=== PATIENT | male | born 1995 | race African-American/Black ===

== ENCOUNTER → 2016-12-26 09:12 | Day surgery (SDC) | payer OTHER ==
--- NOTE | 2016-12-22 14:55 | HP ---
PREOPERATIVE HISTORY AND PHYSICAL EXAM: DATE OF OFFICE VISIT/ENCOUNTER: 12/22/16 DATE OF SURGERY/ADMISSION: 12/26/16 [facility] ATTENDING SURGEON: Kathy Batista MD. PROCEDURE: Right index finger proximal interphalangeal joint release. CHIEF COMPLAINT: Right index finger pain and stiffness, status post dislocation. HISTORY OF PRESENT ILLNESS: This is a 21-year-old inmate who complains of right index finger pain and stiffness. He had a dislocation of the PIP joint 1 year ago, which was reduced but not splinted afterwards. He had two courses of physical therapy, one for 3 months and one for 8 sessions, during which he attempted to regain motion at the PIP joint, but he was not successful. He is not particularly complaining of pain, but does not have active flexion of the finger PIP joint. He is interested in pursuing surgical intervention at this time to correct the problem. PAST MEDICAL HISTORY: Unremarkable. PAST SURGICAL HISTORY: None. CURRENT MEDICATIONS: None. ALLERGIES: None. FAMILY MEDICAL HISTORY: Unknown. SOCIAL HISTORY: The patient is incarcerated. He is a former smoker. He quit smoking in 2014. He denies recreational drug use and alcohol use. REVIEW OF SYSTEMS: General: Negative for fevers, chills, or night sweats. No known anesthesia problems. HEENT: Negative for headache, lightheadedness, or syncopal episodes. Integumentary: Negative for abrasions, lesions, or open wounds. Cardiothoracic: Negative for chest pain, palpitations, or edema. Negative for hypertension. Pulmonary: Negative for shortness of breath with exertion, chronic cough, or COPD. GI: Negative for nausea, vomiting, diarrhea , constipation or GERD. : Negative for nocturia, urinary frequency, urgency , history of UTIs, or kidney problems. Musculoskeletal: Positive for current complaint. Negative for chronic or intermittent back pain or history of fractures. Neurological: Negative for paresthesias, numbness, history of seizure, stroke, or epilepsy. Endocrine: Negative for diabetes or thyroid issues. Hematologic: Negative for easy bruising, anemia, excessive bleeding, or history of DVT. Infectious Disease: Negative for history of MRSA, hepatitis C, or HIV. PHYSICAL EXAMINATION GENERAL: Well-developed, well-nourished 21-year-old male in no acute distress. VITALS SIGNS: Height 5 feet 11 inches, weight 215 pounds, pulse rate 72, blood pressure 118/70. HEENT: Normocephalic, atraumatic. Pupils are equal, round, and reactive to light and accommodation. Extraocular movements are intact. NECK: Supple. No palpable lymph nodes. Throat is clear. CARDIOTHORACIC: Regular rate and rhythm. S1 and S2. No murmurs, rubs, or gallops. No edema. PULMONARY: Lungs are clear to auscultation bilaterally. No wheezes, rales, or rhonchi. ABDOMEN: Positive bowel sounds, soft, nontender. MUSCULOSKELETAL: On exam of the right hand, index finger, he has full extension of the PIP joint. He has slight flexion deformity at the DIP joint. He can actively fully flex the DIP joint. He has approximately 20 to 30 degrees of active PIP flexion and passive flexion of the PIP joint is not more than active. He has full extension of both joints. He has full MP motion in flexion and extension and a hard endpoint to flexion with attempted passive motion. Neurovascular function is intact. Skin is intact. NEUROLOGICAL: Alert and oriented x3. Cranial nerves II through XII are intact. Sensation is intact to light touch. DIAGNOSTIC STUDIES: Imaging Studies: X-rays AP, lateral and oblique of the right index finger show concentric reduction of PIP joint with evidence of volar plate fracture that has healed. 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 PLAN: The patient is scheduled to undergo a right index finger proximal interphalangeal joint release with Dr. Batista on 12/26/16. He will return to the office 10 to 14 days postop for followup and suture removal. It is recommended that he use [place] for postoperative pain management and this will be prescribed by his facility physician. RAJ JAMES [id number]/[facility] #: [id number] KRYSTIN
[~2016-12-26 09:12] MED LIST: Acetaminophen TAB* 325 MG PO PRN; Buffered Lidocaine 1% SYR 3ML* 3 ML/SYR SYRINGE INTRADERM ONE; Dexamethasone IV* 4 MG/ML 1 ML (4 MG) ONE; DiMENhydriNATE IV* 50 MG/ML VIAL IV PUSH PRN; Famotidine IV* 10 MG/ML 2 ML (20 mg) IV ONE; Famotidine IV* 10 MG/ML 2 ML (20 mg) ONE; HYDROmorphone INJ* 1 MG/ML CARPUJECT SYRINGE IV PRN; Ketorolac INJ* 30 MG/ML 1 ML VIAL ONE; Lidocaine 2% PF * 5 ML VIAL ONE; Midazolam* 1 MG/ML 5 ML VIAL (5 MG) ONE; Ondansetron INJ* 2 MG/ML VIAL ONE; Propofol* 10 MG/ML 20 ML BTL IV PUSH ONE; fentaNYL* 50 MCG/ML 2 ML VIAL (100 MCG VIAL) ONE; oxyCODONE/Acetamin 5/325 MG* TAB PO PRN
[2016-12-26 12:45] VITALS: BP 134/79
--- NOTE | 2016-12-28 07:14 | OP ---
DATE OF OPERATION: 12/26/16 [facility] DATE OF : 89 SURGEON: Kathy Batista MD ICD 9 CODER: RAJ Graves ANESTHESIOLOGIST: Maria Isabel Cassidy MD ANESTHESIA: General. PRE-OP DIAGNOSIS: Proximal interphalangeal extension contracture of the right index finger after dislocation. POST-OP DIAGNOSIS: Proximal interphalangeal extension contracture of the right index finger after dislocation. OPERATIVE PROCEDURE: Right index finger PIP release. ESTIMATED BLOOD LOSS: Zero. TOURNIQUET TIME: About 30 minutes. INDICATION FOR PROCEDURE: Valeriano is a 21-year-old male who suffered dislocation of his right index finger proximal phalanx several months ago. He has developed a marked extension contracture. He has only about 20 degrees of PIP flexion. He has full extension. He has normal DIP motion, flexion and extension, and normal MP motion. He presents for PIP release. DESCRIPTION OF PROCEDURE: The patient was brought to the operating room. He was given a general anesthetic and placed in the supine position on the operating table with a tourniquet around his right forearm. Skin of his right upper extremity was prepped and draped in the usual sterile fashion. A longitudinal slightly curved incision was made on the dorsal aspect of the right index finger centered at the PIP joint, made full thickness skin flaps down to the extensor tendon. Either side of the central slip was incised to release the lateral bands and then the extensor tendon was elevated off of the PIP joint capsule. This did not improve the range of motion, so the dorsal capsule of the joint as well as the dorsal half of the collateral ligament were incised and then we were able to gain 90 degrees of PIP flexion. There was normal DIP motion and normal MP motion and we were able to get him into a full fist. The wound was irrigated and the skin edges were reapproximated with 4-0 nylon suture. The wound was dressed with Xeroform, 4x4, Webril, and Coban. The patient tolerated the procedure well and was brought to the recovery room in good condition. [id number]/[facility] #: [id number] MTDSierra
== END ==
LOC: OREAST 09:12
PROVIDERS: ATTEND Orthopaedic Surgery
DX: M24.541 Contracture, right hand (principal); Z87.891 Personal history of nicotine dependence
CPT/HCPCS: J1100; J1885; J2250; J2405; J2704; J3010